=== PATIENT | female | born 1935 ===

== ENCOUNTER 2018-10-04 11:03 | Emergency (ER) | payer OTHER ==
[~2018-10-04] VITALS: Ht 152.4 cm; Wt 52.2 kg
[~2018-10-04 11:03] MED LIST: AVALIDE 150/12.1 TAB PO; LIPITOR40 MG PO; [UNRECOGNIZED DRUG - REMARK]
[2018-10-04] MEDS ORDERED: FORTAMET500 MG (12:21)
[2018-10-04] MEDS ORDERED: GLIPIZIDE ER5 MG (12:22)
[2018-10-04] MEDS ORDERED: FAMOTIDINE20 MG (12:22)
[2018-10-04] MEDS ORDERED: ENALAPRIL MALEA10 MG (12:23)
[2018-10-04] MEDS ORDERED: SIMVASTATIN20 MG (12:23)
== END 2018-10-04 15:24 | disposition home or self-care (01) ==
LOC: ER 11:03
DX: S00.83XA Contusion of other part of head, initial encounter (principal); W18.39XA Other fall on same level, initial encounter; Y93.89 Activity, other specified; Y92.091 Bathroom in other non-institutional residence as the place of occurrence of the external cause; Y99.8 Other external cause status; B34.9 Viral infection, unspecified

== ENCOUNTER 2018-11-19 20:58 | Emergency (ER) | payer OTHER ==
[~2018-11-19] VITALS: Ht 157.5 cm; Wt 51.7 kg
[~2018-11-19 20:58] MED LIST changes: +ENALAPRIL MALEA10 MG; +FAMOTIDINE20 MG; +FORTAMET500 MG; +GLIPIZIDE ER5 MG; +SIMVASTATIN20 MG
== END 2018-11-20 00:03 | disposition home or self-care (01) ==
LOC: ER 20:58
DX: L03.116 Cellulitis of left lower limb (principal)

== ENCOUNTER 2019-01-10 13:11 | Emergency (ER) | payer OTHER ==
[~2019-01-10] VITALS: Ht 152.4 cm; Wt 51.7 kg
[2019-01-10] MEDS ORDERED: AMOX1TAB5 PO (15:19)
[2019-01-10] MEDS ORDERED: LASIX20 MG PO (15:19)
== END 2019-01-10 16:03 | disposition home or self-care (01) ==
LOC: ER 13:11
DX: R60.0 Localized edema (principal)

== ENCOUNTER 2019-01-14 19:46 | Emergency (ER) | payer OTHER ==
[~2019-01-14] VITALS: Ht 160 cm; Wt 49.9 kg
[~2019-01-14 19:46] MED LIST changes: +AMOX1TAB5 PO; +LASIX20 MG PO
== END 2019-01-14 23:06 | disposition home or self-care (01) ==
LOC: ER 19:46
DX: M79.605 Pain in left leg (principal)

== ENCOUNTER 2019-02-08 09:13 | Emergency (ER) | payer OTHER ==
[~2019-02-08] VITALS: Ht 152.4 cm; Wt 51.3 kg
[2019-02-08] MEDS ORDERED: ZOCOR20 MG (09:28)
== END 2019-02-08 10:14 | disposition home or self-care (01) ==
LOC: ER 09:13
DX: S90.02XA Contusion of left ankle, initial encounter (principal); I83.892 Varicose veins of left lower extremity with other complications; X58.XXXA Exposure to other specified factors, initial encounter; Y93.89 Activity, other specified; Y92.89 Other specified places as the place of occurrence of the external cause; Y99.8 Other external cause status

== ENCOUNTER 2020-07-15 06:40 | Emergency (ER) | payer OTHER ==
[~2020-07-15] VITALS: Ht 154.9 cm; Wt 49.9 kg
[~2020-07-15 06:40] MED LIST changes: +ZOCOR20 MG
[2020-07-15] MEDS ORDERED: METFORMIN HCL500 M3 (07:02)
[2020-07-16] MEDS ORDERED: PEPCID AC20 MG PO (14:51)
[2020-07-16] MEDS ORDERED: INTESTINEX680 M1 PO (14:51)
[2020-07-16] MEDS ORDERED: CIPRO500 MG PO (14:51)
== END 2020-07-16 15:40 | disposition home or self-care (01) ==
LOC: ER 06:40
DX: E13.621 Other specified diabetes mellitus with foot ulcer (principal); L97.518 Non-pressure chronic ulcer of other part of right foot with other specified severity; L08.89 Other specified local infections of the skin and subcutaneous tissue; B96.4 Proteus (mirabilis) (morganii) as the cause of diseases classified elsewhere; B95.2 Enterococcus as the cause of diseases classified elsewhere; B95.61 Methicillin susceptible Staphylococcus aureus infection as the cause of diseases classified elsewhere; B96.89 Other specified bacterial agents as the cause of diseases classified elsewhere; B96.7 Clostridium perfringens [C. perfringens] as the cause of diseases classified elsewhere; R53.1 Weakness; I87.2 Venous insufficiency (chronic) (peripheral); R46.0 Very low level of personal hygiene; Z79.84 Long term (current) use of oral hypoglycemic drugs; Z60.2 Problems related to living alone

== ENCOUNTER 2021-08-22 19:40 | Emergency (ER) | payer OTHER ==
[~2021-08-22] VITALS: Ht 175.3 cm; Wt 52.2 kg
[~2021-08-22 19:40] MED LIST changes: +CIPRO500 MG PO; +INTESTINEX680 M1 PO; +METFORMIN HCL500 M3; +PEPCID AC20 MG PO
[2021-08-22] MEDS ORDERED: CIPRO500 MG PO (20:14)
== END 2021-08-22 20:24 | disposition home or self-care (01) ==
LOC: ER 19:40
DX: S91.122A Laceration with foreign body of left great toe without damage to nail, initial encounter (principal); Y93.9 Activity, unspecified; Y92.019 Unspecified place in single-family (private) house as the place of occurrence of the external cause; W22.8XXA Striking against or struck by other objects, initial encounter